=== PATIENT | male | born 1970 | race Caucasian/White ===

== ENCOUNTER → 2016-12-19 | Outpatient (CLI) | payer OTHER ==
[~2016-12-19] MED LIST: AMARYL 2MG TABLE2 MG PO; FERROUS SULFAT325 MG PO; FOLIC ACID 1 MG1 MG PO; FOLIC ACID1 MG PO; IBUPROFEN800 MG PO; LEVAQUIN I500 MG/100 IV; LEVAQUIN500 MG PO; LOVENOX SY30 MG/0.3 SQ; MIRALAX17 GM PO; MS CONTIN15 MG PO; NEURONTIN100 MG PO; NORVASC 5 MG TAB5 MG PO; NYSTATIN15 GM TOP; OMEPRAZOLE20 M1 PO; OMEPRAZOLE20 MG PO; OXYCODONE HCL10 MG PO; OXYCODONE HCL5 M1 PO; PERCOCET 10-321 EACH PO; PERCOCET 5-3251 EACH PO; PHENERGAN 12.12.5 M1 PO; PHENERGAN 25 MG25 M1 PO; PROVENTIL HFA 61 INH INH; ROXICODONE TAB 55 MG PO; SENOKOT-S TABL1 EACH PO; SPIRIVA18 MCG INH; TENORMIN 25 MG25 MG PO; THERAGRAN M TAB1 EA PO; TYLENOL 325MG325 MG PO; VANCOCIN 125MG/2.5ML IV; VANCOMYCIN1.5 GM/251 IV; VENTOLIN HFA 66.7 GM INH; VENTOLIN/PROVE0.5 ML INH; VITAMIN B-6100 MG PO; ZESTORETIC 20-1 EAC1 PO
== END ==
LOC: OPSV 09:49
DX: Z45.2 Encounter for adjustment and management of vascular access device (principal)

== ENCOUNTER → 2016-12-31 | Outpatient (CLI) | payer OTHER ==
[~2016-12-31] VITALS: Ht 193 cm; Wt 120.2 kg
[2016-12-31 12:33] LABS: HEMOGLOBIN 12.9 gm/dl (14.0-17.5); RED BLOOD COUNT 4.92 M/UL (4.20-5.50); WHITE BLOOD COUNT 5.8 K/UL (4.5-11.0)
[2016-12-31 12:45] LABS: BUN/CREATININE RATIO 6 (0-10)
== END ==
LOC: OPSV2 11:00
PROVIDERS: Orthopaedic Surgery
DX: Z01.812 Encounter for preprocedural laboratory examination (principal); M86.9 Osteomyelitis, unspecified
CPT/HCPCS: 36415; 80048; 81001; 85027

== ENCOUNTER → 2017-01-07 | Outpatient (CLI) | payer OTHER | LOC: KOH-I 11:56 | DX: M84.361D Stress fracture, right tibia, subsequent encounter for fracture with routine healing (principal); M86.661 Other chronic osteomyelitis, right tibia and fibula; T79.7XXA Traumatic subcutaneous emphysema, initial encounter | CPT/HCPCS: 73700 ==

== ENCOUNTER → 2021-06-20 | Outpatient (CLI) | payer MEDICARE, OTHER ==
[~2021-06-20] MED LIST changes: +AMLODIPINE BESYL5 MG PO; +ATENOLOL50 MG PO; +CUBICIN 500 MG500 MG IV; +IRON325 M1 PO; +NEURONTIN 300300 MG PO; -OMEPRAZOLE20 M1 PO; +OMEPRAZOLE40 MG PO; -PHENERGAN 25 MG25 M1 PO; +SPIRIVA RESPIMAT4 GM INH; +VIBRAMYCIN100 MG PO; +ZYRTEC10 MG PO
== END ==
LOC: MRI 13:42
DX: K76.9 Liver disease, unspecified (principal); K74.60 Unspecified cirrhosis of liver; R16.1 Splenomegaly, not elsewhere classified
CPT/HCPCS: 36415; 74183; 82565; 84520; 87521; A9577

== ENCOUNTER → 2021-10-25 | Day surgery (SDC) | payer MEDICARE, OTHER ==
[~2021-10-25] MED LIST changes: +ALBUTEROL2.5 MG/3 M INH; +ALLEGRA ALLERG180 MG PO; +BUSPIRONE HCL5 MG PO; +CARVEDILOL6.25 MG PO; +CLONIDINE HCL0.1 MG PO; +DOXYCYCLINE HY100 MG PO; +GABAPENTIN800 MG PO; +INSULIN AS100 UNIT/3 SQ; +LANTUS SOL100 UNIT/1 SQ; +LOSARTAN POTAS100 MG PO; +MONTELUKAST SOD10 MG PO; +PROMETHAZINE12.5 M1 PO; +SERTRALINE HCL100 MG PO
== END | disposition home or self-care (01) ==
LOC: OR 08:15
DX: K31.819 Angiodysplasia of stomach and duodenum without bleeding (principal); K76.6 Portal hypertension; K31.89 Other diseases of stomach and duodenum; K74.60 Unspecified cirrhosis of liver; I85.10 Secondary esophageal varices without bleeding; I10 Essential (primary) hypertension; E11.9 Type 2 diabetes mellitus without complications; J44.9 Chronic obstructive pulmonary disease, unspecified; Z79.4 Long term (current) use of insulin; Z20.822 Contact with and (suspected) exposure to COVID-19; Z88.0 Allergy status to penicillin
CPT/HCPCS: 82962; J2001; J2704; J7040